=== PATIENT | male | born 1955 | race Caucasian/White ===

== ENCOUNTER → 2021-03-30 16:38 | Outpatient (CLI) | payer OTHER, SELFPAY ==
[2021-03-06 13:34] VITALS: BMI 22.6
--- NOTE | 2021-03-30 16:39 | MRI_ITS ---
ACR Level 3 findings have been noted. An addendum which confirms receipt of the report will follow. STUDY: MRI LUMBAR SPINE WITHOUT CONTRAST REASON FOR EXAM: Male, 65 years old. Pain x 1 year, osteoporosis TECHNIQUE: Standardized fat and water weighted pulse sequences were obtained in the sagittal and axial planes. COMPARISON: Lumbar spine radiographs 03/06/2021. FINDINGS: T10-T11: (Sagittal only). Normal endplates. Normal disc height, hydration and morphology. No ventral extradural defect. Normal central canal and the barely included portions of the bilateral intervertebral neural foramina. T11-T12: (Sagittal only). Normal T11 inferior endplate. Recent moderate anterior wedge compression fracture of the upper T12 vertebral body with bone edema across the upper vertebral body. The bone edema extends minimally to both T12 pedicles. Minimal retropulsion of the posterior-superior corner of the T12 vertebral body causing mild ventral extradural defect. Normal central canal and bilateral intervertebral neural foramina. T12-L1: Moderate recent anterior wedge compression fracture with bone edema of the L1 vertebral body causing increased disc space height. Normal T12 inferior endplate. Mild degenerative facet arthropathy. Normal central canal and bilateral lateral recesses. Normal bilateral intervertebral neural foramina. Normal lumbar lordosis. There is no substantial scoliosis. Normal conus medullaris that terminates at the mid L1 vertebral body level. L1-2: Pronounced old anterior wedge compression fracture of the L2 vertebral body contains PMMA casts from previous kyphoplasty. This accounts for the increased disc space height. Normal L1 inferior endplate but there is moderate recent anterior wedge compression fracture of the upper L1 vertebral body. Mild retropulsion of the posterior-superior corner of the L2 vertebral body causing right-sided asymmetric flattening central canal stenosis with an AP canal diameter of 8.7 mm. Prominent dorsal epidural lipomatosis. Mild asymmetric degenerative facet arthropathy. Mild stenosis of the right intervertebral neural foramen. Normal left intervertebral neural foramen. L2-3: Normal endplates. Normal disc height, hydration and morphology. Normal bilateral facet joints. Normal central canal and bilateral lateral recesses. Normal bilateral intervertebral neural foramina. L3-4: Normal endplates. Mild disc space height narrowing. Mild central canal stenosis with an AP canal diameter of 10 mm. Prominent dorsal epidural lipomatosis. Normal bilateral lateral recesses. Normal facet joints. Normal bilateral intervertebral neural foramina. L4-5: MODIC type II degenerative vertebral marrow fatty changes underneath the left side of the vertebral endplates. Pronounced left-sided disc space height narrowing. Small posterior annular bulging disc. Mild central canal stenosis with an AP canal diameter of 10 mm. Prominent dorsal epidural lipomatosis. Normal bilateral lateral recesses. Mild asymmetric degenerative facet arthropathy. Mild stenosis of the left intervertebral neural foramen. Normal right intervertebral neural foramen. L5-S1: Normal endplates. Moderate disc space height narrowing. Small posterior annular bulging disc. Moderate central canal stenosis with an AP canal diameter of 7.6 mm. Mild dorsal epidural lipomatosis. Normal bilateral lateral recesses. Mild asymmetric degenerative facet arthropathy. Normal bilateral intervertebral neural foramina. Normal visualized sacral ala. TARLOV cyst behind the left side of S2 body. Normal visualized paraspinous soft tissue structures. MRI/Spine Lumbar (Routine) IMPRESSION: Electronically Signed: Raymond Guerrero MD at 9:41 EDT , Service support ,
== END ==
PROVIDERS: PCP Internal Medicine Cardiovascular Disease; Referring Provider Orthopaedic Surgery; Visit Provider Orthopaedic Surgery
DX: M47.816 Spondylosis without myelopathy or radiculopathy, lumbar region (principal); M80.00XA Age-related osteoporosis with current pathological fracture, unspecified site, initial encounter for fracture; Z98.890 Other specified postprocedural states; M54.5 Low back pain
CPT/HCPCS: 72148